=== PATIENT | male | born 1970 | race Caucasian/White ===

== ENCOUNTER 2019-12-06 15:42 | Inpatient (IN) | payer OTHER ==
[~2019-12-06] VITALS: Ht 177.8 cm; Wt 81.9 kg
[~2019-12-06 15:42] MED LIST: CHLO25 PO; CIPR500; Norco 10-325 T1 EACH PO; SOLI5; SOLI5 PO; Zofran Odt4 MG SL
[2019-12-06 17:07] LABS: BASOPHILS ABSOLUTE AUTO 0.02 K/mm3 (0.00-0.23); BASOPHILS PERCENT AUTO 0 % (0-2); EOSINOPHILS ABSOLUTE AUTO 0.09 K/mm3 (0.00-0.68); EOSINOPHILS PERCENT AUTO 1 % (0-6); Hematocrit 46.7 % (37.0-53.0); Hemoglobin 15.8 g/dL (13.5-17.5); IMMATURE GRAN ABSOLUTE AUTO 0.01 K/mm3 (0.00-0.10); IMMATURE GRAN PERCENT AUTO 0 % (0-1); LYMPHOCYTES ABSOLUTE AUTO 0.97 K/mm3 (0.84-5.20); LYMPHOCYTES PERCENT AUTO 13 % (21-46); MONOCYTES ABSOLUTE AUTO 0.58 K/mm3 (0.16-1.47); MONOCYTES PERCENT AUTO 8 % (4-13); Mean Corpuscular HGB 33.3 pg (26.0-34.0); Mean Corpuscular HGB Conc 33.8 g/dL (31.5-36.5); Mean Corpuscular Volume 98 fL (80-100); Mean Platelet Volume 9.2 fL (9.1-12.4); NEUTROPHILS ABSOLUTE AUTO 5.69 K/mm3 (1.96-9.15); NEUTROPHILS PERCENT AUTO 77 % (41-73); Platelet Count 183 K/mm3 (150-400); RDW Coefficient Variation 12.7 % (11.7-14.2); RDW Standard Deviation 46.1 fL (35.1-46.3); Red Blood Cell Count 4.75 M/mm3 (4.30-5.90); White Blood Cell Count 7.36 K/mm3 (4.00-11.30)
[2019-12-06 17:20] LABS: International Normalized Ratio 1.02; Prothrombin Time Results 10.9 Sec (9.7-11.5)
[2019-12-06 17:25] LABS: Alanine Aminotransfer (ALT/SGP 62 U/L (12-78); Albumin, Blood 4.2 g/dL (3.4-5.0); Albumin/Globulin Ratio 1.2 (0.8-1.8); Alk Phos 91 U/L (50-136); Anion Gap 10 mmol/L (6-16); Aspartate Aminotrans (AST/SGOT 50 U/L (12-37); Bilirubin, Total 0.4 mg/dL (0.1-1.0); Blood Urea Nitrogen 14 mg/dL (8-24); Bun/Creatinine Ratio 13.9 (12.0-20.0); CO2, Blood 26 mmol/L (21-32); Calcium, Blood 8.6 mg/dL (8.5-10.1); Chloride, Blood 106 mmol/L (98-108); Creatinine, Blood 1.01 mg/dL (0.60-1.20); Ethanol (Alcohol), Blood, Med 265 mg/dL; Globulin, Blood 3.4 g/dL (2.2-4.0); Glomerular Filtration Rate >60 (60-); Glucose, Blood 108 mg/dL (70-99); Potassium, Blood 3.7 mmol/L (3.5-5.5); Sodium, Blood 142 mmol/L (136-145); Total Protein, Blood 7.6 g/dL (6.4-8.2)
--- NOTE | 2019-12-06 22:33 | NUR ---
ARRIVAL TO UNIT. PT ARRIVED TO UNIT VIA GURNEY. PT SLID SELF OVER TO BED WITH MINIMAL ASSISTANCE. PT CURRENTLY RESTING IN BED WATCHING TV DENIES PAIN AND REPORTS A DISCOMFORT. MEDICATED PER EMAR PT WISHES TO SLEEP. PT TOLERATES WATER AT THIS TIME, EDUCATED PT ON NPO ORDERS AT MIDNIGHT. PT REPORTED HAVING ALCOHOLIC BEVERAGES IN HIS PERSONAL BELONGINGS. WHEN ASKED IF HE WANTED TO TO DISPOSE OF THEM OR HAVE SECURITY HOLD THEM HE ASKED ME TO POUR THEM OUT FOR HIM. PT STATED "SINCE YOU ARE BEING SECURITY CONCIENCE, YOU SHOULD KNOW I HAVE A MARIJUANA PIPE IN MY PANTS POCKET." ON ASSESSMENT PT ALSO HAD A SILVER SANJUANA POCKET KNIFE WELL. CALLED SECURITY TO HAVE THEM LOCK UP THESE ITEMS AND AM AWAITING THEIR ARRIVAL. PT IS AGREEABLE TO THEM BEING STORED.
[2019-12-07 04:00] LABS: Hematocrit 41.5 % (37.0-53.0); Hemoglobin 14.3 g/dL (13.5-17.5); Mean Corpuscular HGB 33.7 pg (26.0-34.0); Mean Corpuscular HGB Conc 34.5 g/dL (31.5-36.5); Mean Corpuscular Volume 98 fL (80-100); Mean Platelet Volume 9.2 fL (9.1-12.4); Platelet Count 160 K/mm3 (150-400); RDW Coefficient Variation 12.6 % (11.7-14.2); RDW Standard Deviation 45.6 fL (35.1-46.3); Red Blood Cell Count 4.24 M/mm3 (4.30-5.90)
[2019-12-07 04:22] LABS: Anion Gap 9 mmol/L (6-16); Blood Urea Nitrogen 10 mg/dL (8-24); Bun/Creatinine Ratio 12.9 (12.0-20.0); CO2, Blood 23 mmol/L (21-32); Chloride, Blood 108 mmol/L (98-108); Creatinine, Blood 0.78 mg/dL (0.60-1.20); Glomerular Filtration Rate >60 (60-); Glucose, Blood 84 mg/dL (70-99); Magnesium, Blood 1.9 mg/dL (1.6-2.4); Phosphorus, Blood 3.4 mg/dL (2.5-4.9); Potassium, Blood 3.7 mmol/L (3.5-5.5); Sodium, Blood 140 mmol/L (136-145)
--- NOTE | 2019-12-07 05:40 | NUR ---
SHIFT SUMMARY AA0X4, VSS. LEFT ANKLE FX. PT HAS REPORTED A MAX PAIN LEVEL 0F 12/29. MANAGED PER EMAR WITH 1 NORCO X3. PT STATED RELIEF WITH THIS. NPO SINCE MIDNIGHT. KNIFE SENT WITH SECURITY AND OTHER VALUABLE LOCKED IN DRAWER. PT UNDERSTOOD AND WAS AGREEABLE. ORIENTED TO ROOM AND DENIES FURTHER NEEDS. PLAN IS FOR SURGERY IN THE MORNING.
[2019-12-07] MEDS ORDERED: HYDR1TAB94 PO (17:33)
[2019-12-07] MEDS ORDERED: ACET325 PO (17:36)
[2019-12-07] MEDS ORDERED: ASPI325EC PO (17:37)
[2019-12-07] MEDS ORDERED: FAMO20 PO (17:37)
[2019-12-07] MEDS ORDERED: FOLI1 PO (17:38)
[2019-12-07] MEDS ORDERED: ONDA4ODT MM (17:39)
[2019-12-07] MEDS ORDERED: Hair, Skin & N1 EACH PO (17:39)
[2019-12-07] MEDS ORDERED: B-1100 M1 PO (17:41)
--- NOTE | 2019-12-07 18:26 | NUR ---
DISCHARGE SUMMARY PT A&OX4, VSS, LEFT FLOOR VIA WC WITH RNSN, WITH ALL PERSONAL POSSESSIONS INCLUDING PIPES HELD IN DRAWER, KNIFE FROM SECURITY, AND DISCHARGE PACKET. DC INSTRUCTIONS PROVIDED. PT REP UNDERSTANDING THOSE INSTRUCTIONS INCLUDING CRUTCHES SCRIPT CAN BE FILLED AT [employer] TOMORROW, OR PURCHASED TONIGHT FROM [employer] FOR $40 WITHOUT SCRIPT, USE FWW/CRUTCHES FOR ALL AMBULATION, FILL SCRIPT FOR NORCO TONIGHT AT [employer], ENTRY ANALYST OTHER SCRIPTS FAXED TO [employer], TAKE ASA 325 DAILY X 14 DAYS, NWB ON LLE, ELEVATE LLE AT REST, FU WITH DR JHA IN 2 WKS. IV DC'D.
== END 2019-12-07 18:17 | disposition home or self-care (01) | DRG 493 ==
LOC: ER 15:42 → SURS 17:56 → ER 17:56 → ERHOLD 17:56 → SURS 21:30
PROVIDERS: Emergency Medicine; Orthopaedic Surgery; ADMIT Family Medicine
PROC: 0QSH04Z Reposition Left Tibia with Internal Fixation Device, Open Approach (ICD-10-PCS; principal; 2019-12-07 12:30)
DX: S82.852A Displaced trimalleolar fracture of left lower leg, initial encounter for closed fracture (principal); F10.239 Alcohol dependence with withdrawal, unspecified; W19.XXXA Unspecified fall, initial encounter; Z85.51 Personal history of malignant neoplasm of bladder
CPT/HCPCS: 27818; 36415; 73600; 73610; 76000; 80048; 80053; 83690; 83735; 84100; 85025; 85027; 85610; 85730; 93005; 93010; 97116; 97161; 99152; 99285-25; A9270-GY; C1713; G0480; J0690; J1100; J1170; J1644; J1885; J2060; J2250; J2405; J2704; J3010; J3480; J7030; J7120

== ENCOUNTER 2020-06-30 09:18 | Inpatient (IN) | payer OTHER ==
[~2020-06-30] VITALS: Ht 177.8 cm; Wt 78.4 kg
[~2020-06-30 09:18] MED LIST changes: +ACET325 PO; +ASPI325EC PO; +B-1100 M1 PO; +FAMO20 PO; +FOLI1 PO; +HYDR1TAB94 PO; +Hair, Skin & N1 EACH PO; +ONDA4ODT MM
[2020-06-30] MEDS ORDERED: Naltrexone HCl50 MG PO (10:05)
[2020-06-30] MEDS ORDERED: Chlordiazepoxid25 MG PO (10:05)
[2020-06-30 10:31] LABS: Hematocrit 47.3 % (37.0-53.0); Hemoglobin 16.4 g/dL (13.5-17.5); Mean Corpuscular HGB 33.5 pg (26.0-34.0); Mean Corpuscular HGB Conc 34.7 g/dL (31.5-36.5); Mean Corpuscular Volume 97 fL (80-100); Mean Platelet Volume 9.8 fL (9.1-12.4); Platelet Count 343 K/mm3 (150-400); RDW Coefficient Variation 11.9 % (11.7-14.2); RDW Standard Deviation 42.5 fL (35.1-46.3); White Blood Cell Count 8.45 K/mm3 (4.00-11.30)
[2020-06-30 10:38] LABS: Albumin, Blood 3.4 g/dL (3.4-5.0); Albumin/Globulin Ratio 0.6 (0.8-1.8); Bilirubin, Total 0.9 mg/dL (0.1-1.0); Creatinine, Blood 2.17 mg/dL (0.60-1.20); Globulin, Blood 5.8 g/dL (2.2-4.0); Potassium, Blood 4.1 mmol/L (3.5-5.5); Total Protein, Blood 9.2 g/dL (6.4-8.2)
[2020-06-30 11:10] LABS: BAND PERCENT MAN 28 % (0-8); BASOPHILS PERCENT MAN 0 % (0-2); EOSINOPHILS PERCENT MAN 0 % (0-6); LYMPHOCYTES ABSOLUTE MAN 0.25 K/mm3 (0.84-5.20); LYMPHOCYTES PERCENT MAN 3 % (21-46); MONOCYTES ABSOLUTE MAN 0.92 K/mm3 (0.16-1.47); MONOCYTES PERCENT MAN 11 % (4-13); NEUTROPHILS ABSOLUTE MAN 7.26 K/mm3 (1.96-9.15); SEG NEUTROPHILS PERCENT MAN 58 % (41-73); TOTAL CELLS COUNTED 100
[2020-06-30 12:22] LABS: Influenza A, PCR Negative (NEGATIVE); Influenza B, PCR Negative (NEGATIVE); Resp Syncytial Virus, PCR Negative (NEGATIVE); SARS-Cov-2 (COVID-19) PCR, MMC Negative (NEGATIVE)
--- NOTE | 2020-06-30 12:35 | NUR ---
PT BROUGHT FROM ER 14. PT WITH BELCHING AND HICCUPS. Lungs clear T/O to Auscultation. Patient confirms NPO status and agrees with scheduled surgery. Pre-Op teaching done. Pt verbalizes understanding. Lungs clear T/O to Auscultation.
--- NOTE | 2020-06-30 23:23 | NUR ---
PATIENT WAKES TO VERBAL STIMULI, SPEAKS WHEN PROMPTED, ALERT AND ORIENTED, FOLLOWS COMMANDS. USES THE THUMBS UP AND DOWN TO COMMUNICATED YES AND NO. CIWA OF 0. NG TO LIS, NPO, USING LEMON SWABS FOR ORAL MOISTURE. THROAT IS SORE WITH NG TUBE. PATIENT STATES UNDERSTANDING OF HOW TO USE THE TECHNOLOGY RECRUITER PUMP FOR PAIN AND CALL LIGHT FOR ASSISTANCE. CATH IS DRAINING CLEAR YELLOW URINE, REPOSTITIONED STAT LOCK TO AVOID PULLING . MIDLINE DRESSING IS COMPRESSED (MARIBELL). OSTOMY IS PUTTING OUT A SCANT AMOUNT OF CLEAR PINK FLUID. CLAIR DRAIN IS ALSO DRAINING CLEAR PINK FLUID AND IS COMPRESSED. ABLE TO HELP WITH TURNING LEFT TO RIGHT AND ASKED TO HAVE A ROLLED TOWEL PLACE LENGTH HEIN ALONG HIS SPINE FOR CHRONIC PAIN. CALL LIGHT AND TECHNOLOGY RECRUITER BUTTON WITHIN REACH.
[2020-07-01 03:52] LABS: Hematocrit 44.9 % (37.0-53.0); Hemoglobin 15.4 g/dL (13.5-17.5); Mean Corpuscular HGB 33.1 pg (26.0-34.0); Mean Corpuscular HGB Conc 34.3 g/dL (31.5-36.5); Mean Corpuscular Volume 97 fL (80-100); Mean Platelet Volume 9.8 fL (9.1-12.4); Platelet Count 302 K/mm3 (150-400); RDW Coefficient Variation 11.9 % (11.7-14.2); RDW Standard Deviation 42.4 fL (35.1-46.3); Red Blood Cell Count 4.65 M/mm3 (4.30-5.90); White Blood Cell Count 9.06 K/mm3 (4.00-11.30)
[2020-07-01 04:10] LABS: Anion Gap 6 mmol/L (6-16); Blood Urea Nitrogen 35 mg/dL (8-24); CO2, Blood 33 mmol/L (21-32); Calcium, Blood 8.2 mg/dL (8.5-10.1); Chloride, Blood 94 mmol/L (98-108); Creatinine, Blood 1.25 mg/dL (0.60-1.20); Glomerular Filtration Rate >60 (60-); Glucose, Blood 185 mg/dL (70-99); Magnesium, Blood 2.5 mg/dL (1.6-2.4); Phosphorus, Blood 3.8 mg/dL (2.5-4.9); Potassium, Blood 3.4 mmol/L (3.5-5.5); Sodium, Blood 133 mmol/L (136-145)
[2020-07-01 04:29] LABS: BAND PERCENT MAN 20 % (0-8); BASOPHILS PERCENT MAN 0 % (0-2); EOSINOPHILS PERCENT MAN 0 % (0-6); LYMPHOCYTES % ATYPICAL MANUAL 1 % (0-0); LYMPHOCYTES ABSOLUTE MAN 0.36 K/mm3 (0.84-5.20); LYMPHOCYTES PERCENT MAN 3 % (21-46); METAMYELOCYTE ABSOLUTE MAN 0.09 K/mm3 (0.00-0.00); METAMYELOCYTE PERCENT MAN 1 % (0-0); MONOCYTES ABSOLUTE MAN 0.81 K/mm3 (0.16-1.47); MONOCYTES PERCENT MAN 9 % (4-13); MYELOCYTE ABSOLUTE MAN 0.09 K/mm3 (0.00-0.00); MYELOCYTE PERCENT MAN 1 % (0-0); SEG NEUTROPHILS PERCENT MAN 65 % (41-73); TOTAL CELLS COUNTED 100
--- NOTE | 2020-07-01 05:20 | NUR ---
PATIENT HAS HAD THE HICCOPS SINCE 2299. HAS NOT BEEN ABLE TO SLEEP. NO ACUTE CHANGES. CLAIR DRAIN PUT OUT A TOTAL OF 30 CC OF S/S FLUID. COLOSTOMY WITH LIGHT PINK CLEAR FLUID, SCANT AMOUNT, NOT DRAINED.
--- NOTE | 2020-07-01 12:10 | NUR ---
0815 HICCUPS HAVE RESOLVED AT THIS TIME AND PT LAYING WITH EYES CLOSED AND SNORING RESPIRATIONS
--- NOTE | 2020-07-01 16:02 | NUR ---
SUMMARY PT WITH OCC SHORT BOUTS OF HICCUPS THIS AFTERNOON. PT DENIES NAUSEA AND REPORTS PAIN IS ADEQUATELY CONTROLLED WITH CHILD WELFARE DIRECTOR. OSTOMY STOMA PINK. MARIBELL MIDLINE INPLACE AND FUNCTIONING. PT REPOSITIONING SELF IN BED. NG TO LIS WITH DK BROWN/GREEN DRAINAGE. PT LATEST CIWA IS 0. REPORT GIVEN TO CHERELLE EUCEDA WHO IS ASSUMING CARE
--- NOTE | 2020-07-02 04:22 | NUR ---
SHIFT SUMMARY PT A/OX4 W/VSS. POD # 2 COLECTOMY WITH OSTOMY. MARIBELL DRESSING TO MIDLINE INTACT AND COMPRESSED WITH DARK RED/BROWN SHADOWING. CLAIR DRESSING CDI WITH 20ML OF SS OUT, BULB COMPRESSED. OSTOMY APPLIANCE CDI, STOMA RED AND BEEFY IN COLOR, NO DRAINAGE NOTED. JAMISON TO GRAVITY DRAIN W/BAG OFF GROUND AND STAT LOCK IN PLACE; 800ML CL DARK YELLOW URINE OUT. NG TO LIS; 500ML OF DARK GREEN LIQUID OUT THIS SHIFT. REPORTS PAIN MANAGED WITH FLIGHT INSPECTOR. SPO2 ABOVE 93% ON 0.5L NC, CONT BIOX IN PLACE. IRMA SMALL AMOUNTS OF ICE CHIPS. REPORTS MINIMAL HICCUPS. HAS CIWA OF 0. PT APPEARS TO HAVE SLEPT T/O MOST OF SHIFT. IS ABLE TO REPOSITION SELF IN BED. IS CURRENTLY RESTING IN BED WITH EYES CLOSED, CALL LIGHT/PAIN BUTTON IN REACH. WILL CONT TO MONITOR AND GIVE REPORT TO ONCOMING RN.
[2020-07-02 05:38] LABS: Anion Gap 6 mmol/L (6-16); Blood Urea Nitrogen 27 mg/dL (8-24); Bun/Creatinine Ratio 31.8 (12.0-20.0); CO2, Blood 31 mmol/L (21-32); Calcium, Blood 8.4 mg/dL (8.5-10.1); Chloride, Blood 98 mmol/L (98-108); Creatinine, Blood 0.85 mg/dL (0.60-1.20); Glomerular Filtration Rate >60 (60-); Glucose, Blood 146 mg/dL (70-99); Magnesium, Blood 2.7 mg/dL (1.6-2.4); Phosphorus, Blood 1.5 mg/dL (2.5-4.9); Potassium, Blood 3.5 mmol/L (3.5-5.5); Sodium, Blood 135 mmol/L (136-145)
--- NOTE | 2020-07-02 19:37 | NUR ---
SHIFT SUMMARY POD2 LAP ROCKY WITH COLECTOMY.NG TUBE SUCTION ON LOW INT SUCTION, OUTPUT OF 550 WITH GREEN DRAINAGE. DIET IS NPO, OK FOR ICE CHIPS TOLERATING IT WELL DENIES N/V. PT DENIES PASSING FLATUS. 1 BM THIS MORNING. PT UP IN CHAIR TWICE, TOLERATING IT W/ 1 ASSIST. WALK/AMBULATE IN THE HALLWAY X1. CIWA REMAIN 0. PAIN MANAGED WITH FENTANYL, TOPLINE BEADING MACHINE TENDER. ADEQUATE URINE OUTPUT. IV RAC AND LLA PRESENT. CLAIR DRAIN PRESENT COMPRESSED WITH 10ML SEROSAN DRAINAGE. CLINEMEX/ LIPID/ PHOSPHATE ADMIN VIA IV. CALL LIGHT W/IN REACH.
[2020-07-03 05:31] LABS: Anion Gap 4 mmol/L (6-16); Blood Urea Nitrogen 23 mg/dL (8-24); CO2, Blood 30 mmol/L (21-32); Calcium, Blood 8.2 mg/dL (8.5-10.1); Chloride, Blood 100 mmol/L (98-108); Creatinine, Blood 0.74 mg/dL (0.60-1.20); Glomerular Filtration Rate >60 (60-); Glucose, Blood 130 mg/dL (70-99); Magnesium, Blood 2.3 mg/dL (1.6-2.4); Phosphorus, Blood 2.1 mg/dL (2.5-4.9); Potassium, Blood 4.2 mmol/L (3.5-5.5); Sodium, Blood 134 mmol/L (136-145); Triglycerides 307 mg/dL (30-160)
--- NOTE | 2020-07-03 07:53 | NUR ---
POD 3 S/P COLECTOMY+COLOSTOMY. PT VSS T/O NIGHT. MARIBELL DRESSING IN PLACE W/SEAL AND SX MAINTAINED. CLAIR PUT OUT 20ML LIGHT SS DRNG. BT HYPO, ABD DISTENDED, OSTOMY W/SCANT SS DRNG+SCANT FLATUS. NGT PUT OUT 300ML LIGHT GREEN DRNG. PT HAD NO C/O N/V. PT VOIDING URINE W/O DIFFICULTY. NEW POWERGLIDE PLACED THIS SHIFT, CLINIMIX CONT PER ORDERS. PT REP PAIN IRMA W/PRICING COORDINATOR. REPORT GIVEN TO CHERELLE GEORGE.
--- NOTE | 2020-07-03 19:51 | NUR ---
SHIFT SUMMARY PT A0X4. TOLERATING ICE CHIPS AND POPSICLE. PT STS ABD FEELS LESS TIGHTER TODAY COMPARED YESTERDAY. PT DENIES NAUSEA ANG VOMITING. HE GOT UP WALKING ONCE TODAY AND UP IN CHAIR WELL. ENC USE OF I/S AND DEEP BREATH EXERCISE. NG TUBE INTACT IN LOW INT SUC, DRAINING MUCH FINISHED STOCK INSPECTOR GREEN TODAY. MID ABD MARIBELL DRESSING REMAIN INTACT AND COMPRESSED, SOME SHADOWING DRAINAGE REMAIN THE SAME. OSTOMY WITH VERY MINIMAL OUTPUT. PAIN IS WELL CONTROLLED W/ FENTANYL CLERK ENTRY LEVEL. CALL LIGHT W/IN REACH.
[2020-07-04 05:10] LABS: Magnesium, Blood 2.5 mg/dL (1.6-2.4)
[2020-07-04 05:11] LABS: Anion Gap 5 mmol/L (6-16); Blood Urea Nitrogen 21 mg/dL (8-24); Bun/Creatinine Ratio 24.8 (12.0-20.0); CO2, Blood 30 mmol/L (21-32); Calcium, Blood 8.4 mg/dL (8.5-10.1); Chloride, Blood 101 mmol/L (98-108); Creatinine, Blood 0.85 mg/dL (0.60-1.20); Glomerular Filtration Rate >60 (60-); Glucose, Blood 147 mg/dL (70-99); Phosphorus, Blood 3.4 mg/dL (2.5-4.9); Potassium, Blood 4.1 mmol/L (3.5-5.5); Sodium, Blood 136 mmol/L (136-145)
--- NOTE | 2020-07-04 06:12 | NUR ---
SHIFT SUMMARY POD 4 EX LAP WITH NEW OSTOMY. AA0X4, PAIN MANAGED WITH WARP TYING MACHINE KNOTTER, DENIES OTHERWISE. NG TUBE PATENT AND DRAINING, FREQUENTLY ASKING FOR ICE CHIPS, DENIES NAUSEA. PT MOVING FREQUENTLY FROM BED TO CHAIR, ALMOST PULLED NG TUBE OUT DURING A TRANSFER. MIDLINE PICCO COMPRESSED WITH NO NEW DRAINAGE ON PICCO DRESSING. CLINIMIX INFUSING DURING SHIFT.
--- NOTE | 2020-07-04 09:01 | NUR ---
DR RICHARD HERE TO SEE PT.
--- NOTE | 2020-07-04 11:11 | NUR ---
STEAM TENDER TO SEE PT.
--- NOTE | 2020-07-04 15:06 | NUR ---
BRICKLAYER'S ASSISTANT HERE TO TALK WITH PT AND FAMILY PER THEY'RE REQUEST.
--- NOTE | 2020-07-04 16:30 | NUR ---
SHIFT SUMMARY PT NPO. PT HAVING GAS OUT OF OSTOMY, PT EDUCATED ON BURPING OSTOMY BAG THIS AFTERNOON. PT BEEN ASSISTED WITH ADL'S PRN. BYPRODUCTS OPERATOR TO SEE PT AND FAMILY THIS AFTERNOON. PT BEEN GIVEN ICE CHIPS AND POPSCICLES (ORANGE) PER DR RICHARD. PT BEEN PLEASANT AND COOPERATIVE. PT USING HYDROGENATION STILL OPERATOR FOR PAIN, DISCUSSED PAIN MGMT.
--- NOTE | 2020-07-04 16:38 | NUR ---
PT BEEN MOVING SELF IN BED. PT CONT TO HAVE NGT TO LIS.
[2020-07-05 05:58] LABS: Triglycerides 221 mg/dL (30-160)
--- NOTE | 2020-07-05 06:19 | NUR ---
SHIFT SUMMARY POD5 PERF BOWEL LAPAROSCAPY, A/O X4, VSS, NPO W/ SIPS&CHIPS AND TOLERATING THAT WELL, VOIDING IN URINAL, COLOSTOMY W/ BAG IN PLACE DRAINING SOFT BROWN STOOL, AMBULATES WELL W/ 1 PER SBA, REPORTED FEELING URGE TO PASS BM, ASSISTED TO BSC, NOT ABLE TO HAVE BM, WILL ASSIST AGAIN IF URGE RETURNS. PAIN WELL CONTROLLED W/ ROLLER INSPECTOR. DRESSING FROM CLAIR DRAIN REMOVAL CDI. CALL LIGHT IN REACH, WILL CONTINUE TO MONITOR AND REPORT TO ONCOMING DAY RN.
--- NOTE | 2020-07-05 08:49 | NUR ---
DR RICHARD RECENTLY TO SEE PT.
--- NOTE | 2020-07-05 15:15 | NUR ---
ACCOUNT MAINTENANCE REPRESENTATIVE ASSISTED PT'S WHILE THIS RN WAS IN MEETING BETWEEN 14:00 AND 15:00.
--- NOTE | 2020-07-05 15:18 | NUR ---
aaaaaaaaaaaaaamet pt in bed and then mother in the room on visit pt. reports doing much better encouraged pt and prayed for him.
--- NOTE | 2020-07-05 16:43 | NUR ---
SHIFT SUMMARY PT CONT TO BE NPO EXCEPT ICE CHIPS AND POPSCICLES. PT NGT TO LIS. PT BEEN RESTING OFF AND ON. PT BEEN WATCHING TV. PT BEEN ASSISTED WITH ADL'S PRN. PT APPEARS TO BE MORE COMFORTABLE THIS EVENING. PT CALL LIGHT IN REACH. IVF IN PLACE. SUPERVISOR CHASSIS ASSEMBLY IN PLACE.
--- NOTE | 2020-07-06 03:49 | NUR ---
SHIFT SUMMARY POD6 EXLAP W/ COLOSTOMY, A/O X4, VSS, NPO BUT TOLERATING SIP/CHIPS/POPCICLES ALLOWED BY ORDERS, AMBULATES WELL W/ 1 PERSON SBA, VOIDS USING URINAL AT BEDSIDE, PASSING FLATUS VIA COLOSTOMY, COLOSTOMY OUTPUT CONTINUES PINK LIQUID BUT APPEARS SLIGHTLY THICKER THAN PRIOR SCHEDULING MANAGER OUTPUT. PT PAIN WELL CONTROLLED W/ PHARMACY ACCOUNT DIRECTOR FENT, WAS IN CHAIR FOR PART OF THE SHIFT AT PT REQUEST. CALL LIGHT IN REACH, WILL CONTINUE TO MONITOR AND REPORT TO ONCOMING DAY RN.
--- NOTE | 2020-07-06 14:21 | NUR ---
PT GIVEN A KPAD FOR HIS BACK AND LIDOCAINE PATCH THIS AM, REPORTS HAVING ADEQUTE RELIEF OF BACK PAIN AT THIS TIME, NGT CLAMPED THIS AM BY DR. RICHARD, DENIES ANY NAUSEA OR ANY NEED FOR PAIN MEDS AT THIS TIME.
--- NOTE | 2020-07-06 16:23 | NUR ---
NGT UNCLAMPED AND PLACED ON LIS.
--- NOTE | 2020-07-06 17:39 | NUR ---
DR. IRCHARD HERE TO SEE PT, OSTOMY APPLIANCE LEAKING, APPLIANCE CHANGED, OSTOMY TEACHING DONE, NEED REINFORCED PT DOESN'T SEEM VERY INTERESTED IN LEARNING AT THIS TIME, MARIBELL DRESSING REMOVED BY DR. RICHARD, INCISION APPEARS CLEAN AND DRY, MEDIPORE DSG APPLIED, DENIED ANY NAUSEA ALL DAY, TOLERATING SIPS AND CHIPS FAIRLY WELL, AMBULATED DOWN THE HALLS TODAY, TOLERATED WELL, NO ACUTE CHANGES THIS SHIFT.
[2020-07-07 05:45] LABS: Anion Gap 5 mmol/L (6-16); Blood Urea Nitrogen 16 mg/dL (8-24); Bun/Creatinine Ratio 19.5 (12.0-20.0); CO2, Blood 26 mmol/L (21-32); Calcium, Blood 8.2 mg/dL (8.5-10.1); Chloride, Blood 103 mmol/L (98-108); Creatinine, Blood 0.82 mg/dL (0.60-1.20); Glomerular Filtration Rate >60 (60-); Glucose, Blood 145 mg/dL (70-99); Magnesium, Blood 2.4 mg/dL (1.6-2.4); Phosphorus, Blood 3.4 mg/dL (2.5-4.9); Potassium, Blood 4.1 mmol/L (3.5-5.5); Sodium, Blood 134 mmol/L (136-145)
--- NOTE | 2020-07-07 06:12 | NUR ---
POD 7 S/P COLECTOMY+COLOSTOMY. PT VSS, T-MAX 99.8. LUNGS DIM, PT HAS PROD COUGH W/CLEAR SPUTUM, SATS >90% ON RA, PT DENIES SOB. DRESSING INTACT W/SMALL AMT SS DRNG. NGT REMAINED CLAMPED T/O NIGHT, NO SIG CHANGES IN ABD DISTENTION. PT REP ABD FELT MORE BLOATED FOR SHORT PERIOD DURING NIGHT, STATES IS IMPROVED THIS AM. PT DENIED N/V, NO SIG OSTOMY OUTPUT. PT VOIDING URINE W/O DIFFICULTY. ABD PAIN MGD W/PRACTICING DERMATOLOGIST. PT UP INDEP FROM BED TO CHAIR, IS USING CALL LIGHT FOR ASSISTNACE.
--- NOTE | 2020-07-07 06:40 | NUR ---
I/S USE: PT STATES HAS NOT USED I/S "IN A DAY OR 2" STATES "I'M TOO WEAK TO BLOW INTO IT" PT EDUCATED ON PROPER USE AND IMPORTANCE/BENEFITS OF USE TO HELP W/RESP STATUS. PT DECLINING TO USE AT THIS TIME. LUNGS DIM, COUGH PROD W/CLEAR SPUTUM.
--- NOTE | 2020-07-07 12:18 | NUR ---
CONT. OSTOMY TEACHING WITH PT, DISCUSSED EMPTYING BAG AND "BURPING" BAG, PT ABLE TO DEMONSTRATE PROPER TECHNIQUE, PT SEEMS MORE RESPONSIVE TO TEACHING TODAY, PT CURRENTLY WATCHING OSTOMY VIDEOS, PT HAS HAD 1325CC OUTPUT FROM OSTOMY APPLIANCE SO FAR.
--- NOTE | 2020-07-07 18:18 | NUR ---
SUMMARY REPORT ABD FEELS "BETTER" TODAY, PASSING MORE FLATUS IN OSTOMY BAG, ABOUT 2450CC OUTPUT FROM OSTOMY TODAY, PT HAS BEEN EMPTYING THE OSTOMY BAG AND "BURPING" THE BAG PRN, REPORTS PAIN IS TOLERABLE WITH DEHYDRATOR OPERATOR, DENIES ANY NAUSEA, ABD SOFT, TOLERATING SIPS OF CLEAR LIQUIDS FAIRLY WELL, AMBULATED THE HALLS X2, USED IS T/O THE DAY, NO ACUTE CHANGES THIS SHIFT.
--- NOTE | 2020-07-07 18:24 | NUR ---
PT IN OR.
--- NOTE | 2020-07-08 06:31 | NUR ---
SHIFT SUMMARY POD 8 SIGMOID COLECTOMY AA0X4, PT HAVING LIQUID BROWN OUTPUT WITH SOME SMALL SOLID PIECES IN OSTOMY. LOTS OF FLATUS TODAY. PT INQUIRING AND ASKING QUESTIONS RELATING TO OSTOMY. PT IND IN ROOM VOIDING WELL. TOLERATING SMALL SIPS AND CHIPS, DENIES NAUSEA. CLINIMIX INFUSING. DRY SS DRAINAGE ON MIDLINE MEDIPORE. PLAN TO CONTINUE OBSERVING OSTOMY AND MANAGE PAIN WITH OFFICE ADMIN. CURRENTLY PATIENT DENIES ANY PAIN.
--- NOTE | 2020-07-08 19:59 | NUR ---
OSTOMY EDUCATION PT'S OSTOMY APPLIANCE WAS CHANGED TODAY. PT AND HIS MOTHER WERE EDUCATED ABOUT OSTOMY APPLIANCE CHANGE. THEY WERE EDUCATED ABOUT OSTOMY WAFER AND BAG. EDUCATED ABOUT RISK FOR SKIN BREAKDOWN AND USE OF SKIN PROTECTANT. PT ALSO EDUCATED ABOUT USING AN OSTOMY BELT AND OSTOMY POWDER IF NEEDED. PT'S STOMA IS 1 3/4 INCH IN DIAMETER AND ROUND, 2 3/4 INCH ROUND OSTOMY APPLIANCE PLACED.
--- NOTE | 2020-07-08 20:03 | NUR ---
SHIFT SUMMARY PAIN HAS BEEN MANAGED WITH PO PAIN MEDICATION THIS SHIFT. HE IS TOLERATING REGULAR DIET. OSTOMY EDUCATION GIVEN. ABD MIDLINE DRESSING CHANGED X2, MINIMAL SEROSANGUINOUS DRAINAGE. PT IS A SBA WHILE IN THE ROOM. PLAN FOR DISCHARGE HOME TOMORROW LONG PT REMAINS MEDICALLY STABLE.
--- NOTE | 2020-07-09 06:06 | NUR ---
SHIFT SUMMARY: SAROJ IS A&OX4. VSS, NO ACUTE EVENTS OVERNIGHT. HE IS TOLERATING PO INTAKE WELL, DENIES ANY DIFFICULTIES WITH ELIMINATION. HE IS INDEPENDENT IN THE ROOM. IV TO L AC PATENT, BUT MILDLY UNCOMFORTABLE WITH FLUSHING; NO INFILTRATION NOTED. HE IS CARING FOR HIS OSTOMY INDEPENDENTLY. HE REPORTS ADEQUATE PAIN CONTROL WITH ONE TABLET OF NORCO 5/325 MG. HE REPORTS BEING MUCH MORE COMFORTABLE IN THE RECLINER OPPOSED TO THE BED. HE IS SITTING IN THE RECLINER WITH THE CALL LIGHT IN REACH. WILL REPORT TO DAY SHIFT RN.
--- NOTE | 2020-07-09 12:07 | NUR ---
DR PIERSON HERE TO SEE PT.
[2020-07-09] MEDS ORDERED: HYDR1TAB94 PO (13:39)
--- NOTE | 2020-07-09 15:00 | NUR ---
DISCHARGE: PT EATING AND DRINKING, VOIDING. PT HAVING OUTPUT OUT OSTOMY. PT AND FAMILY REPORTS UNDERSTANDING AND HAS BEEN CARING FOR OSTOMY BY SELF, REPORTS AWARE OF HOW TO CHANGED OSTOMY APPLIANCE WELL. PT MEDIPORE DRESSING CHANGED EARLIER TODAY. PT SENT WITH SUPPLIES FOR DRESSINGS WELL MULT OSTOMY APPLIANCES. PAPERWORK FOR OSTOMY SUPPLIES FAXED WHICH CONFIRMED "OK", THAT FAX WENT THROUGH. PT SENT WITH BELONGINGS WELL. PT HOME WITH MOM TO ASSIST WITH PT AND HIS CARE.
== END 2020-07-09 15:03 | disposition home or self-care (01) | DRG 329 ==
LOC: ER 09:18 → SURS 12:39
PROVIDERS: Physician Assistant; ADMIT Surgery
PROC: 0DTN0ZZ Resection of Sigmoid Colon, Open Approach (ICD-10-PCS; principal; 2020-06-30 11:00)
PROC: 0D1N0Z4 Bypass Sigmoid Colon to Cutaneous, Open Approach (ICD-10-PCS; 2020-06-30 11:00)
DX: K65.0 Generalized (acute) peritonitis (principal); K63.1 Perforation of intestine (nontraumatic); K56.609 Unspecified intestinal obstruction, unspecified as to partial versus complete obstruction; N17.9 Acute kidney failure, unspecified; E83.39 Other disorders of phosphorus metabolism; Z20.828 Contact with and (suspected) exposure to other viral communicable diseases; F17.210 Nicotine dependence, cigarettes, uncomplicated; Z79.82 Long term (current) use of aspirin
CPT/HCPCS: 0241U; 36415; 51798; 74176; 80048; 80053; 82947; 83690; 83735; 84100; 84478; 85025; 88307; 94760; 94762; 96361-59; 96365-59; 96375-59; 99284-25; A9270-GY; C1751; C9113; J1100; J1650; J2250; J2405; J2543; J2704; J3010; J3411; J3475; J7030; J7040; J7060; J7120

== ENCOUNTER 2020-10-18 09:55 | Day surgery (SDC) | payer OTHER ==
[~2020-10-18] VITALS: Ht 177.8 cm; Wt 76.1 kg
[~2020-10-18 09:55] MED LIST changes: +Chlordiazepoxid25 MG PO; +Naltrexone HCl50 MG PO
--- NOTE | 2020-10-18 10:30 | NUR ---
10/18/20 1030 Amber Meyer 1 TRY RIGHT HAND VALVE
== END 2020-10-18 12:30 | disposition home or self-care (01) ==
LOC: ORSCSDS 09:55
PROVIDERS: Surgery
PROC: 0DJD8ZZ Inspection of Lower Intestinal Tract, Via Natural or Artificial Opening Endoscopic (ICD-10-PCS; principal; 2020-10-18 11:00)
PROC: 0DBP8ZX Excision of Rectum, Via Natural or Artificial Opening Endoscopic, Diagnostic (ICD-10-PCS; principal; 2020-10-18 11:00)
DX: K52.9 Noninfective gastroenteritis and colitis, unspecified (principal); Z87.19 Personal history of other diseases of the digestive system; Z93.3 Colostomy status; F41.9 Anxiety disorder, unspecified; F17.200 Nicotine dependence, unspecified, uncomplicated
CPT/HCPCS: 88305; J2250; J2704; J7120

== ENCOUNTER 2021-05-29 06:59 | Inpatient (IN) | payer OTHER ==
[~2021-05-29] VITALS: Ht 177.8 cm; Wt 81.3 kg
[~2021-05-29 06:59] MED LIST changes: +CHLO25B PO; +EPIPEN0.3 MG/0.3; +FERSU300 PO; +SERT25 PO; +Triamcinolone A15 G2 TOP; +VITAMIN B125000 MC1 PO
--- NOTE | 2021-05-29 08:31 | NUR ---
Ambulatory in Day Surgery Patient states colon prep results clear. History, Chart, Medications and Allergies reviewed before start of procedure. Lungs clear T/O to Auscultation. Pre-Op teaching done. Pt verbalizes understanding.
--- NOTE | 2021-05-29 09:43 | NUR ---
05/29/21 0943 Brian Robert SCHEDULED ANTIBIOTICS FLAGYL 500MG 05/29/21 AT 0903
--- NOTE | 2021-05-29 17:02 | NUR ---
POST OP: REPORT RECEIVED FROM HIRA NURSING PROGRAM DIRECTOR. PT TO UNIT AT ABOUT 1510. UPON ASSESSMENT PT IS ORIENTED AND DROWSY. AWAKENS TO VOICE AND FOLLOWS COMMANDS. VSS, SURGICAL SITES WNL, JAMISON DRAINING. PT REPORTS 9/10 INCISIONAL PAIN. DILAUDID CENTRAL OFFICE MAINTAINER SET UP AND SETTINGS VERIFIED WITH CHERELLE GRIFFITHS. WILL CTM
--- NOTE | 2021-05-29 18:11 | NUR ---
SUMMARY: NO ACUTE CHANGE SINCE POST OP. VSS, PT CONTINUES TO BE DROWSY, BUT AWAKENS TO VOICE AND IS MORE AWAKE TONIGHT. SURGICAL SITE WNL. PT ABLE TO TURN IN BED. PT REPORTING SLIGHT TREMORS IN HANDS TONIGHT, NO OTHER S/SX OF ETOH WITHDRAWAL AT THIS TIME, WILL MONITOR. WILL PASS REPORT TO EMMY VILLARREAL.
[2021-05-29 20:11] LABS: Hematocrit 41.5 % (37.0-53.0); Hemoglobin 14.4 g/dL (13.5-17.5)
[2021-05-30 04:25] LABS: BASOPHILS ABSOLUTE AUTO 0.06 K/mm3 (0.00-0.23); BASOPHILS PERCENT AUTO 1 % (0-2); EOSINOPHILS ABSOLUTE AUTO 0.08 K/mm3 (0.00-0.68); EOSINOPHILS PERCENT AUTO 1 % (0-6); Hematocrit 37.6 % (37.0-53.0); Hemoglobin 13.2 g/dL (13.5-17.5); IMMATURE GRAN ABSOLUTE AUTO 0.02 K/mm3 (0.00-0.10); IMMATURE GRAN PERCENT AUTO 0 % (0-1); LYMPHOCYTES ABSOLUTE AUTO 0.42 K/mm3 (0.84-5.20); LYMPHOCYTES PERCENT AUTO 4 % (21-46); MONOCYTES ABSOLUTE AUTO 1.19 K/mm3 (0.16-1.47); MONOCYTES PERCENT AUTO 12 % (4-13); Mean Corpuscular HGB 34.4 pg (26.0-34.0); Mean Corpuscular HGB Conc 35.1 g/dL (31.5-36.5); Mean Corpuscular Volume 98 fL (80-100); Mean Platelet Volume 9.5 fL (9.1-12.4); NEUTROPHILS ABSOLUTE AUTO 7.81 K/mm3 (1.96-9.15); NEUTROPHILS PERCENT AUTO 82 % (41-73); Platelet Count 242 K/mm3 (150-400); RDW Coefficient Variation 12.1 % (11.7-14.2); RDW Standard Deviation 43.7 fL (35.1-46.3); Red Blood Cell Count 3.84 M/mm3 (4.30-5.90); White Blood Cell Count 9.58 K/mm3 (4.00-11.30)
[2021-05-30 05:02] LABS: Magnesium, Blood 1.5 mg/dL (1.6-2.4)
[2021-05-30 05:16] LABS: Alanine Aminotransfer (ALT/SGP 66 U/L (12-78); Albumin, Blood 2.9 g/dL (3.4-5.0); Albumin/Globulin Ratio 0.8 (0.8-1.8); Alk Phos 59 U/L (50-136); Anion Gap 6 mmol/L (6-16); Aspartate Aminotrans (AST/SGOT 39 U/L (12-37); Bilirubin, Total 0.7 mg/dL (0.1-1.0); Blood Urea Nitrogen 12 mg/dL (8-24); Bun/Creatinine Ratio 13.2 (12.0-20.0); CO2, Blood 26 mmol/L (21-32); Calcium, Blood 7.8 mg/dL (8.5-10.1); Chloride, Blood 110 mmol/L (98-108); Creatinine, Blood 0.91 mg/dL (0.60-1.20); Globulin, Blood 3.5 g/dL (2.2-4.0); Glomerular Filtration Rate >60 (60-); Glucose, Blood 152 mg/dL (70-99); Phosphorus, Blood 3.3 mg/dL (2.5-4.9); Potassium, Blood 4.1 mmol/L (3.5-5.5); Sodium, Blood 142 mmol/L (136-145); Total Protein, Blood 6.4 g/dL (6.4-8.2)
--- NOTE | 2021-05-30 07:30 | NUR ---
SUMMARY WITH SHIFT CHANGE NOTED MARIBELL DRESSINGS WERE COMPLETELY SATURATED WITH BLEED. PT ALSO WITH TEMP >101. DAY RN TO ROOM AND CONFIRMED CHANGED IN BLEEDING. RADHA CALLED DR GONZALEZ AND ADVISED. DRESSINGS WERE CHANGE AND AREA CLEANSED PER THIS RN AND PEDRO RN.LARGE CLOTTING NOTED UNDER DRESSINGS.ALSO SLIGHT OPEN AREA LOWER END INC WITH BLOOD VISIBLE.GUAZE DRESSINGS PLACED AND OPSITES OVER FOR FURTHER VISUALIZATION AND ABD BINDER PLACED FOR PRESSURE.FOLLOW LABS AND VS SATISFACTORY.ALTHOUGH NEW DRESSINGS SATURATED WITH SERO-SANGE DRNG. MUCH AERIAL PLANTING AND CULTIVATION MANAGER THAN BEFORE. THIS DID NOT EXTEND BEYOND THE EDGES OF OPSITE THE OTHER BLEEDING DID.PTS TEMP IMPROVED WNL.PT ABLE TO REPOSITION SELF IN BED SIDE/SIDE.PT WITH HX ETOH ABUSE AND HAS HAD TREMORS TONIGHT, HOWEVER SCORE LOW ON CWA. PT ADVISED STAFF HE HAS USED LIBRIUM IN PAST, BUT STATES IT IS TOO SOON FOR THAT.DR RICHARD HERE TO SEE PT AND DRESSINGS CHANGED.DR RICHARD NOTED INCS AND BLOODY APPEARANCE TO EDGE OF LOWER VERTICAL INC.REPLACED GUAZE AND STATED NO NEED FOR LIBRIUM YET PT HAD A SHOT OF WHISKEY BEFORE O.R. YESTERDAY.DR RICHARD OKD PT TO HAVE ONE POPSICLE TWICE A DAY.FEW ICE CHIPS, AND JAMISON OUT.I UPDATED DR DRIVER LAST NIGHT ON PT WELL.
--- NOTE | 2021-05-30 09:05 | NUR ---
DILAUDID NAILER MACHINE RATE CHANGED TO 0.2 CONTINUOUS AT THIS TIME, VERIFIED WITH CATY TIJERINA RN. SEE EMAR
--- NOTE | 2021-05-30 17:48 | NUR ---
SUMMARY: PT IS POD1 COLOSTOMY TAKEDOWN. A/O, DROWSY, VSS TODAY. NO SIGNS OF BLEEDING TODAY FROM SURGICAL SITE, GAUZE CDI. PAIN SEEMS TO BE MANAGED WITH DILAUDID PCU, CONTINUOUS RATE AND DEMAND DOSE. YAQUELIN LOPEZ'Cindy TONIGHT, AWAITING VOID. CIWA 1-3 TODAY. DEEP BREATHING ENCOURAGED, PT DEMONSTRATED I.S. USE. NO ACUTE SAFETY CONCERNS, WILL CTM AND REPORT TO EMMY VILLARREAL.
--- NOTE | 2021-05-31 04:10 | NUR ---
SHIFT SUMMARY POD2 COLOSTOMY TAKEDOWN. MIDLINE AND TRANSVERSE INCISIONS COVERED WITH GAUZE AND TAPE, INTACT WITH SCANT AMOUNT OF SS DRAINAGE ON GAUZE. PT REPORTS PASSING FLATUS, FREQUENT BELCHING NOTED. COMPLAINS OF NAUSEA X1, TREATED PER EMAR NO EMESIS. TOLERATING SIPS AND CHIPS. VOIDING SMALL AMOUNTS IN URINAL. PT REPORTING PAIN 9/10 ON PAIN SCALE. APPEARS TO BE RESTING COMFORTABLY THROUGHOUT SHIFT, YOKER MACHINE OPERATOR INFUSING PER ORDERS. PT ENCOURAGED TO MOBILIZE AND EDUCATED ON BOWEL MOTILITY. PT REFUSING TO AMBULATE THIS SHIFT. ENCOURAGING DEEP BREATHING EXERCISES.
[2021-05-31 04:16] LABS: BASOPHILS ABSOLUTE AUTO 0.05 K/mm3 (0.00-0.23); BASOPHILS PERCENT AUTO 1 % (0-2); EOSINOPHILS PERCENT AUTO 3 % (0-6); Hematocrit 36.1 % (37.0-53.0); Hemoglobin 12.2 g/dL (13.5-17.5); IMMATURE GRAN ABSOLUTE AUTO 0.03 K/mm3 (0.00-0.10); IMMATURE GRAN PERCENT AUTO 0 % (0-1); LYMPHOCYTES ABSOLUTE AUTO 0.67 K/mm3 (0.84-5.20); LYMPHOCYTES PERCENT AUTO 7 % (21-46); MONOCYTES ABSOLUTE AUTO 0.77 K/mm3 (0.16-1.47); MONOCYTES PERCENT AUTO 8 % (4-13); Mean Corpuscular HGB 33.8 pg (26.0-34.0); Mean Corpuscular HGB Conc 33.8 g/dL (31.5-36.5); Mean Corpuscular Volume 100 fL (80-100); Mean Platelet Volume 9.5 fL (9.1-12.4); NEUTROPHILS ABSOLUTE AUTO 7.71 K/mm3 (1.96-9.15); NEUTROPHILS PERCENT AUTO 81 % (41-73); Platelet Count 213 K/mm3 (150-400); RDW Standard Deviation 44.5 fL (35.1-46.3); Red Blood Cell Count 3.61 M/mm3 (4.30-5.90); White Blood Cell Count 9.53 K/mm3 (4.00-11.30)
[2021-05-31 04:28] LABS: Anion Gap 6 mmol/L (6-16); Blood Urea Nitrogen 13 mg/dL (8-24); Bun/Creatinine Ratio 16.2 (12.0-20.0); CO2, Blood 26 mmol/L (21-32); Calcium, Blood 8.2 mg/dL (8.5-10.1); Chloride, Blood 103 mmol/L (98-108); Glomerular Filtration Rate >60 (60-); Glucose, Blood 140 mg/dL (70-99); Magnesium, Blood 1.9 mg/dL (1.6-2.4); Phosphorus, Blood 1.4 mg/dL (2.5-4.9); Potassium, Blood 3.9 mmol/L (3.5-5.5); Sodium, Blood 135 mmol/L (136-145)
--- NOTE | 2021-05-31 10:12 | NUR ---
Left arm IV site red, infiltrate with small saline flush. Removed with cannula intact. Encouraged ambulation at this time, patient states he will be ready in 40 minutes. IVF infusing R Forearm, site clean and dry with no redness or swelling, [facility] [employer] JUSTICE as ordered. Pt. verbalize comfort with Dilaudid marketing team lead but states he is tired of hiccups. Drsg. on abdomen clean dry and intact.
--- NOTE | 2021-05-31 10:42 | NUR ---
Pt. up ambulate in mena with stand by assist, tolerate well
--- NOTE | 2021-05-31 11:13 | NUR ---
Pt. requesting "something for heartburn and indigestion", Dr. Bullock notified and new order recieved for Protonix IV.
--- NOTE | 2021-05-31 15:53 | NUR ---
Encourage pt. to ambulate, declines at this time. Text to Dr. Bullock to notify him of elevated diastolic blood pressure. Pt. did ambulate 200feet and void 600ml. Verbalize relief of indigestion after Protonix. Sleeping at this time.
--- NOTE | 2021-05-31 16:34 | NUR ---
Pt. encouraged to ambulate and pt. agree, up and ambulate in mena >300ft.and tolerate well. Back to bed , SCD's placed. VSS, diastolic after ambulation down to 88. Drsg. on abdomen dry and intact, with minimal drainage at proximal end.
--- NOTE | 2021-05-31 17:23 | NUR ---
Dr. Bullock in to see nenita.
--- NOTE | 2021-06-01 06:31 | NUR ---
AAOX3, CIWA DONE X1 DURING THE SHIFT SCORE 4 WNL. NO ACUTE DISTRESS. HAD A FULL CUP OF ICECHIPS DURING THE SHIFT. NO VERBALIZED NEEDS AT THIS TIME.
--- NOTE | 2021-06-01 15:00 | NUR ---
PT. UP TODAY AND AMBULATE IN HUI, STEADY ON FEET. NOTED RED AREAS ON BACK AND C/O ITCHING, cALL TO DR. RICHARD, NEW ORDER FOR BENEDRYL, GIVEN AND PT. TO SHOWER AFTER ABD. DRESSING REMOVED. AFTER SHOWER, ABD DRESSING (STERILE GUAZE) REPLACED AND IV'S RESTARTED, ALONG WITH DILAUDID PER WATER PLANT OPERATOR. TAKING CLEAR LIQUIDS WITH NO C/O NAUSEA. STATES HE IS PASSING FLATUS. VOIDING WELL. VERBALIZE RELIEF OF ITCHING BACK WITH BENEDRYL 25 MG PO.
--- NOTE | 2021-06-02 03:55 | NUR ---
PATIENT REQUESTED TO BE OFF O2 MONITOR, OXYGEN ON ROOM AIR 98%. MONITOR WAS REMOVED BASED ON PATIENT REQUEST.
[2021-06-02 05:12] LABS: Anion Gap 5 mmol/L (6-16); Blood Urea Nitrogen 7 mg/dL (8-24); Bun/Creatinine Ratio 8.6 (12.0-20.0); CO2, Blood 27 mmol/L (21-32); Calcium, Blood 8.2 mg/dL (8.5-10.1); Chloride, Blood 104 mmol/L (98-108); Creatinine, Blood 0.82 mg/dL (0.60-1.20); Glomerular Filtration Rate >60 (60-); Glucose, Blood 130 mg/dL (70-99); Magnesium, Blood 1.5 mg/dL (1.6-2.4); Phosphorus, Blood 2.9 mg/dL (2.5-4.9); Potassium, Blood 3.6 mmol/L (3.5-5.5); Sodium, Blood 136 mmol/L (136-145)
--- NOTE | 2021-06-02 09:47 | NUR ---
PHYSICIAN AT BEDSIDE DR. RICHARD AT BEDSIDE. DC'D UTILITY PLANT OPERATIVE PUMP AT THIS TIME AND LR. PLAN FOR PT TO ADVANCE DIET. OK'D FOR PT TO HAVE TOAST AT THIS TIME. PHYSICIAN AWARE OF PT HAVING DIARRHEA.
[2021-06-02] MEDS ORDERED: Norco 5-325 Ta1 EACH PO (12:51)
--- NOTE | 2021-06-02 13:18 | NUR ---
PHYSICIAN NOTIFED PHYSICIAN NOTIFIED OF PT HAVING DISCOLORATION/HEMATOMA FORMATION AT BASE OF PENIS. PT CONCERNED D/T COLOR. PT'S ABD STILL SOFT AND NONTENDER. PHYSICIAN NOT CONCERNED AT THIS TIME. WILL INFORM PT.
--- NOTE | 2021-06-02 15:00 | NUR ---
PHYSICIAN CONTACTED REGARDING SUTURES APPEARING TIGHT AND SKIN IN BETWEEN SUTURES APPEARING TO HAVE ROUGHLY ONE INCH GAP AND NOT CLOSED TIGHT TOGETHER BY SUTURES. PHYSICIAN STATED TO HAVE PT CALL PHYSICIAN AFTER DISHCARGE IF BLEEDING IS NOTED.
--- NOTE | 2021-06-02 15:31 | NUR ---
PT DISHCARGE PT PROVIDED WITH DISHCARGE INSTRUCTIONS PER PHYSICIAN. HARD COPY OF PAIN MEDICATION COPIED, IN CHART, AND HARD COPY SENT HOME WITH PT. PT HAS NO QUESTIONS AT THIS TIME REGARDING DISCHARGE INSTRUCTIONS. PT'S MOTHER AT BEDSIDE. DISCHARGE PAPERWORK SIGNED. PT BROUGHT BY WHEELCHAIR TO MOTHER'S VEHICLE BY MOTORCYCLE MECHANIC WITH ALL BELONGINGS.
== END 2021-06-02 15:30 | disposition home or self-care (01) | DRG 331 ==
LOC: SURS 06:59 → PRE IP 08:30 → SURS 15:32
PROVIDERS: ADMIT Surgery
PROC: 0DBM0ZZ Excision of Descending Colon, Open Approach (ICD-10-PCS; principal; 2021-05-29 08:30)
DX: Z43.3 Encounter for attention to colostomy (principal); E83.39 Other disorders of phosphorus metabolism; K21.9 Gastro-esophageal reflux disease without esophagitis; Z20.822 Contact with and (suspected) exposure to COVID-19; Z91.040 Latex allergy status
CPT/HCPCS: 36415; 80048; 80053; 83735; 84100; 85014; 85018; 85025; 94762; A9270; C9113; J0295; J0690; J1100; J1170; J1650; J1885; J2250; J2370; J2405; J2704; J2710; J3010; J3475; J7050; J7060; J7120

== ENCOUNTER → 2024-11-27 | Outpatient (CLI) | payer OTHER | LOC: LAB SHORT 13:37 → LAB 13:37 | DX: E78.00 Pure hypercholesterolemia, unspecified (principal) ==

== ENCOUNTER → 2025-02-01 | Outpatient (CLI) | payer OTHER ==
[~2025-02-01] MED LIST changes: +Norco 5-325 Ta1 EACH PO
== END | disposition home or self-care (01) ==
LOC: LAB SHORT 10:51 → LAB 10:51
DX: Z08 Encounter for follow-up examination after completed treatment for malignant neoplasm (principal); Z85.51 Personal history of malignant neoplasm of bladder
CPT/HCPCS: 88108